=== PATIENT | male | born 1980 | race Caucasian/White ===

== ENCOUNTER → 2017-06-13 | Outpatient (CLI) | payer OTHER ==
[2017-06-13 18:05] LABS: BASO % 0.2 %; BASO ABS # 0.01 K/uL (0-0.2); COMPLETE YES; EOS % 0.9 %; HEMATOCRIT 44.8 % (42-52); IG% 0.4 %; LYMPH ABS # 1.24 K/uL (1.2-3.4); MEAN CELL VOLUME 90.1 fL (80-100); MEAN CORPUSCULAR HEMOGLOBIN 32.2 pg (25-34); MEAN CORPUSCULAR HGB CONC 35.7 g/dl (32-36); MEAN PLATELET VOLUME 9.9 fL (7.4-10.4); MONO % 6.3 %; NEUT % 69.2 %; PLATELET COUNT 181 K/uL (130-400); RED BLOOD COUNT 4.97 M/uL (4.7-6.1)
[2017-06-13 18:28] LABS: ALT/SGPT 52 U/L (12-78); BLOOD UREA NITROGEN 15 mg/dl (7-18); BUN/CREATININE RATIO 11.6 (10-20); CALCIUM 8.9 mg/dl (8.5-10.1); CARBON DIOXIDE 24 mmol/L (21-32); CHLORIDE 110 mmol/L (98-107); GLUCOSE 128 mg/dl (70-99); POTASSIUM 3.6 mmol/L (3.5-5.1); SODIUM 142 mmol/L (136-145)
[2017-06-13 18:38] LABS: ALB/GLOB RATIO 1.3 (0.9-2); ALKALINE PHOSPHATASE 53 U/L (45-117); AST/SGOT 23 U/L (15-37)
[2017-06-13 19:01] LABS: ESTIMATED AVERAGE GLUCOSE 88 mg/dl; HA1C FLAG Normal (Normal)
[2017-06-17 13:54] LABS: MICROSOMAL AB <1 IU/ML (<9)
[2017-06-18 10:05] LABS: METHYLMALONIC ACID 85 NMOL/L (87-318)
== END | disposition home or self-care (01) ==
LOC: C.LABPVFM 16:04
PROVIDERS: ATTEND Chiropractor
DX: M79.1 Myalgia (principal)

== ENCOUNTER 2017-09-01 12:15 | Inpatient (IN) | payer OTHER ==
[~2017-09-01] VITALS: Ht 175.3 cm; Wt 86.8 kg
[2017-09-01 12:49] LABS: URINE APPEARANCE CLEAR (CLEAR); URINE BILIRUBIN NEG (NEG); URINE COLOR YELLOW; URINE NITRITE NEG (NEG); URINE SPECIFIC GRAVITY 1.018 (1.000-1.030); UROBILINOGEN NEG (NEG)
[2017-09-01 12:53] LABS: MANUAL MICROSCOPIC REQUIRED? NO; REVIEW REQ? NO
[2017-09-01 13:11] LABS: BENZODIAZEPINE, URINE NEG (NEG); COCAINE,URINE NEG (NEG); PHENCYCLIDINE, URINE NEG (NEG)
[2017-09-01 13:17] LABS: BASO % 0.5 %; BASO ABS # 0.03 K/uL (0-0.2); COMPLETE YES; EOS % 2.6 %; IG% 0.9 %; LYMPH % 17.6 %; LYMPH ABS # 1.17 K/uL (1.2-3.4); MEAN CELL VOLUME 89.9 fL (80-100); MEAN CORPUSCULAR HEMOGLOBIN 32.5 pg (25-34); MEAN CORPUSCULAR HGB CONC 36.2 g/dl (32-36); MEAN PLATELET VOLUME 9.6 fL (7.4-10.4); MONO % 6.6 %; NEUT % 71.8 %; PLATELET COUNT 183 K/uL (130-400); RED BLOOD COUNT 5.23 M/uL (4.7-6.1); WHITE BLOOD COUNT 6.65 K/uL (4.8-10.8)
[2017-09-01 13:37] LABS: BUN/CREATININE RATIO 9.7 (10-20); CALCIUM 8.6 mg/dl (8.5-10.1); CREATININE 1.1 mg/dl (0.60-1.40)
[2017-09-01 13:48] LABS: THYROID STIMULATING HORMONE 1.02 uIu/ml (0.300-4.500)
[2017-09-01] MEDS ORDERED: MAGNESIUM HYDROXIDE SUSP 30 ML UDC PO PRN (16:15)
[2017-09-01] MEDS ORDERED: SODIUM CHLORIDE 0.65% NA SOLN 45 ML (OCEAN) PRN (16:15)
[2017-09-01] MEDS ORDERED: hydrOXYzine HCL 25 MG TAB PO PRN ×2 (16:15)
[2017-09-01] MEDS ORDERED: BISMUTH SUBSALICYLATE PER ML OMNICELL CHARGE PO PRN (16:15)
[2017-09-01 16:38] VITALS: O2SAT 96
[2017-09-01 17:17] VITALS: BP 124/85; PULSE 88; TEMP 36.8; Ht 175.3 cm; Wt 86.8 kg
--- NOTE | 2017-09-01 19:10 | EMERGENCY ROOM VISIT NOTE ---
History Report prepared by Rosey: Liliana Fan Under the Supervision of: Dr. Jayesh Navarrete D.O. First contact with patient: 12:29 Chief Complaint: MENTAL HEALTH EVALUATION Stated Complaint: DEPRESSION History of Present Illness The patient is a 36 year old male who presents to the Emergency Room with complaints of worsening depression over the past 3 weeks. The patient has a history of depression. He sees a therapist weekly who thinks that he might have bipolar disorder. The patient agreed to go on medications last week, but is unable to see a psychiatrist for 2 months. He presents to the ED to see if he can speed up the process of starting medications. He has been on Lexapro in the past. He denies any thoughts of harming himself or others. He has had passive thoughts of dying. He has never attempted suicide in the past. He denies any history of cutting himself. He admits to marijuana use and alcohol use. Pt denies headache, change in vision, fevers, chest pain, shortness of breath, nausea, vomiting, diarrhea, pain with urination. Source of History: patient Onset: 3 weeks Position: other (mental health) Quality: other (depression) Timing: worsening Associated Symptoms: No fevers, No headache, No chest pain, No SOB, No nausea, No vomiting, No diarrhea, No urinary symptoms Note: Pt admits to passive thoughts of dying. Pt denies thoughts of harming self or others, change in vision. Review of Systems See HPI for pertinent positives & negatives. A total of 10 systems reviewed and were otherwise negative. Past Medical & Surgical Medical Problems: (1) Depression Family History No pertinent family history stated. Social History Smoking Status: Never Smoker Marital Status: Current/Historical Medications No Active Prescriptions or Reported Meds Allergies Coded Allergies: Cefaclor (Verified Allergy, Unknown, 09/01/17) Oxycodone (Verified Adverse Reaction, Mild, PERCOCET-VOMITING, 09/01/17) Uncoded Allergies: CELCOR (Allergy, Unknown, 09/23/04) Physical Exam Vital Signs Date Time Temp Pulse Resp B/P (MAP) Pulse Ox O2 Delivery O2 Flow Rate FiO2 09/01/17 16:38 88 14 124/85 96 09/01/17 16:07 88 14 124/85 96 Room Air 09/01/17 12:17 36.8 88 15 133/84 98 Room Air Physical Exam GENERAL: sitting up in bed, disheveled, no acute distress, nontoxic. EYE EXAM: normal conjunctiva OROPHARYNX: no exudate, no erythema, lips, buccal mucosa, and tongue normal and mucous membranes are moist NECK: supple, no nuchal rigidity, no adenopathy, non-tender LUNGS: Clear to auscultation. Normal chest wall mechanics HEART: no murmurs, S1 normal and S2 normal ABDOMEN: abdomen soft, non-tender, normo-active bowel sounds, no masses, no rebound or guarding. BACK: Back is symmetrical on inspection and there is no deformity, no midline tenderness, no CVA tenderness. SKIN: no rashes and no bruising UPPER EXTREMITIES: upper extremities are grossly normal. LOWER EXTREMITIES: No pitting edema. NEURO EXAM: Normal sensorium, cranial nerves II-XII grossly intact, normal speech, no gross weakness of arms, no gross weakness of legs. PSYCH: Denies suicidal or homicidal ideation, denies auditory or visual hallucinations, admits to depression, is eating and drinking. Medical Decision & Procedures Laboratory Results 09/01/17 13:03 Red Blood Count 5.23, Mean Corpuscular Volume 89.9, Mean Corpuscular Hemoglobin 32.5, Mean Corpuscular Hemoglobin Concent 36.2, Mean Platelet Volume 9.6, Neutrophils (%) (Auto) 71.8, Lymphocytes (%) (Auto) 17.6, Monocytes (%) (Auto) 6.6, Eosinophils (%) (Auto) 2.6, Basophils (%) (Auto) 0.5, Neutrophils # (Auto) 4.78, Lymphocytes # (Auto) 1.17, Monocytes # (Auto) 0.44, Eosinophils # (Auto) 0.17, Basophils # (Auto) 0.03 09/01/17 13:03 Test 09/01/17 12:30 09/01/17 13:03 Urine Color YELLOW Urine Appearance CLEAR (CLEAR) Urine pH 7.0 (4.5-7.5) Urine Specific [place] 1.018 (1.000-1.030) Urine Protein NEG (NEG) Urine Glucose (UA) NEG (NEG) Urine Ketones NEG (NEG) Urine Occult Blood NEG (NEG) Urine Nitrite NEG (NEG) Urine Bilirubin NEG (NEG) Urine Urobilinogen NEG (NEG) Urine Leukocyte Esterase NEG (NEG) Urine Opiates Screen NEG (NEG) Urine Methadone, Qualitative NEG (NEG) Urine Barbiturates NEG (NEG) Urine Phencyclidine (PCP) Level NEG (NEG) Ur Amphetamine/Methamphetamine NEG (NEG) MDMA (Ecstasy) Screen NEG (NEG) Urine Benzodiazepines Screen NEG (NEG) Urine Cocaine Metabolite NEG (NEG) Urine Marijuana (THC) POS (NEG) White Blood Count 6.65 K/uL (4.8-10.8) Red Blood Count 5.23 M/uL (4.7-6.1) Hemoglobin 17.0 g/dL (14.0-18.0) Hematocrit 47.0 % (42-52) Mean Corpuscular Volume 89.9 fL (80-100) Mean Corpuscular Hemoglobin 32.5 pg (25-34) Mean Corpuscular Hemoglobin Concent 36.2 g/dl (32-36) Platelet Count 183 K/uL (130-400) Mean Platelet Volume 9.6 fL (7.4-10.4) Neutrophils (%) (Auto) 71.8 % Lymphocytes (%) (Auto) 17.6 % Monocytes (%) (Auto) 6.6 % Eosinophils (%) (Auto) 2.6 % Basophils (%) (Auto) 0.5 % Neutrophils # (Auto) 4.78 K/uL (1.4-6.5) Lymphocytes # (Auto) 1.17 K/uL (1.2-3.4) Monocytes # (Auto) 0.44 K/uL (0.11-0.59) Eosinophils # (Auto) 0.17 K/uL (0-0.5) Basophils # (Auto) 0.03 K/uL (0-0.2) RDW Standard Deviation 41.1 fL (36.4-46.3) RDW Coefficient of Variation 12.7 % (11.5-14.5) Immature Granulocyte % (Auto) 0.9 % Immature Granulocyte # (Auto) 0.06 K/uL (0.00-0.02) Anion Gap 10.0 mmol/L (3-11) Est Creatinine Clear Calc Drug Dose 101.3 ml/min Estimated GFR () 99.6 Estimated GFR (Non- 85.9 BUN/Creatinine Ratio 9.7 (10-20) Calcium Level 8.6 mg/dl (8.5-10.1) Total Bilirubin 0.6 mg/dl (0.2-1) Direct Bilirubin 0.1 mg/dl (0-0.2) Aspartate Amino Transf (AST/SGOT) 28 U/L (15-37) Alanine Aminotransferase (ALT/SGPT) 58 U/L (12-78) Alkaline Phosphatase 55 U/L (45-117) Total Protein 7.3 gm/dl (6.4-8.2) Albumin 4.2 gm/dl (3.4-5.0) Thyroid Stimulating Hormone (TSH) 1.020 uIu/ml (0.300-4.500) Ethyl Alcohol mg/dL < 3.0 mg/dl (0-3) Laboratory results per my review. ED Course ED COURSE: Vital signs were reviewed and showed normal vitals. The patients medical record was reviewed The above diagnostic studies were performed and reviewed. ED treatments and interventions as stated above. 1245: The patient was evaluated in room A6. A complete history and physical examination was performed. 1630: Upon reevaluation, the patient is resting comfortably.I discussed my findings with the patient and he understands and agrees with the treatment plan. Based on the patients age, coexisting illnesses, exam and lab findings the decision to treat as an inpatient was made. The patient remained stable while under my care. The patient has been accepted to [address] [place] [address]. Medical Decision Differential diagnosis: Etiologies such as mood disorder, infection, hypoglycemia, electrolyte abnormalities, cardiac sources, intracerebral event, toxicologic, neurologic, as well as others were entertained. Patient is a 36-year-old male who notes it is been becoming more depressed over the past several weeks. He is losing desire to live. He has no clear plan to harm himself. He has been having trouble with his day-to-day activities. No sniffing medical problems. Labs were obtained and he was deemed medically stable. He was evaluated by psychiatric care managers and admitted to [facility] on a 201. Medication Reconcilliation Current Medication List: was personally reviewed by me Blood Pressure Screening Patient's blood pressure: Normal blood pressure Blood pressure disposition: Did not require urgent referral Impression Primary Impression: Mood disorder Scribe Attestation The scribe's documentation has been prepared under my direction and personally reviewed by me in its entirety. I confirm that the note above accurately reflects all work, treatment, procedures, and medical decision making performed by me. Departure Information Dispostion Mental Health Acute Care Prescriptions No Active Prescriptions or Reported Meds Referrals No Doctor, Assigned (PCP) Patient Instructions [facility]
[2017-09-02] MEDS: ALUMINUM/MAGNESIUM SUSP 30 ML UDC PO PRN ×2 (04:11→22:29)
[2017-09-02 07:02] VITALS: BP_SYST 106; BP_SYST 109; BP_DIAS 70; BP_DIAS 75; PULSE 58; PULSE 86; TEMP 36.6
--- NOTE | 2017-09-02 12:01 | Psychiatric History & Physical ---
History Date of Service Sep 02, 2017. Identifying Data Jamaal Mejia is a 36-year-old male from [facility], who was brought to the ED by his and his friend, with reports of depression in the setting of untreated bipolar disorder. The patient was admitted voluntarily. Information is gathered from the patient and considered to be reliable. Chief Complaint "My therapist is pretty confident that I have bipolar."". History of Present Illness The patient is a 36-year-old gentleman who currently sees Alpa Samuel for therapy weekly, who was brought to the emergency room by his and his best friend because of depression. He reports that his therapist has thought he is bipolar for some time now but he admits to being resistant to the idea of taking medications. He first recognized his severe depression several years ago although says he can probably trace some depression back prior to that. At that time he had "crippling anxiety" and depression with suicidal thoughts and sought treatment with his primary care physician who prescribed Lexapro. He had affect is blunting on Lexapro but stayed on it for 9 months and then tapered , struggling with some discontinuation symptoms. His next clearer episode was in the summer of 2014 in which she describes being manic. He says that he had no worries, was hypersexual, had little sleep. He insisted on sleeping outside for several months, was not bathing or brushing his teeth. He described his mood is "happy", saying he didn't care about money. He describes feeling like he was "walking around in a daze" he feels that they were actually times during that period that he couldn't remember. That episode lasted for several months and after that describes having had "small shifts" in his mood until December of this year when he once again experienced maxwell. He describes feeling "very ambitious", hypersexual, objective finding women, feeling very creative and ambitious. He said that he was "never tired" although was sleeping very little. After the manic episode he describes having 6. Of several months where he actually felt "normal" until spring of this year when he had some more minor manic symptoms. 2 months ago he began feeling negative and sad. One week ago his symptoms became severe enough that he voiced his that he was "done with it", not wanting to go through this again. He called his best friend in the middle of the night was able to convince him to take medications and the next day they attempted to get an appointment with Dr. Herring but he was unable to see them until October. At that point his family convinced him to come to the emergency room fearing that his condition was too unstable to wait until October. Today the patient admits that he has been increasingly depressed and anxious. He has been smoking marijuana to medicate his anxiety and feels that that has been helpful. His sleep has been disturbed getting only about 5 hours of sleep per night, waking at 4 AM with a "terrible feeling". He goes on to say however that he gets up in the morning with a "restless excited feeling that is like morning". His appetite is been down saying "I don't get hungry" but then admits to binging on out unhealthy foods in the evening. He reports poor focus and concentration that generally only accompany his depressions as he is hyper focused and productive during manic episodes. 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 He has been having daily crying episodes. He admits to having at least one panic episode while in the garage at home during which she experienced hyperventilation, crying and required the physical assistance of his to calm down he denies ever having any auditory or visual hallucinations. 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 He denies any eating disordered symptoms. He describes being socially anxious since the age of 14, vomiting prior to having to go out where there will be people and if required to eat out at a restaurant would get up from the table senior living through the meal to go vomit. He currently denies suicidal or homicidal ideation. Past Psychiatric History Current OP Treatment: therapist Prior OP Treatment: psychiatrist (one previous session with Dr. Chaparro to discuss) Prior Psych Hospitalizations: none Access to a Gun: No Suicide Attempts: No Past Medication Trials Lexapro Past Medical/Surgical History History of Concussion/Seizure: No (1) none Allergies Allergies: Coded Allergies: Cefaclor (Verified Allergy, Unknown, 09/01/17) Oxycodone (Verified Adverse Reaction, Mild, PERCOCET-VOMITING, 09/01/17) Uncoded Allergies: CELCOR (Allergy, Unknown, 09/23/04) Home Medications No Active Prescriptions or Reported Meds Family History FH: Alzheimers disease FH: Parkinson's disease FH: epilepsy FH: multiple sclerosis History of Suicide: No History of Substance Abuse: No Psychiatric History: Yes (older sister with depression) Alcohol Use Alcohol Use In Past 12 Months: Yes (Social. 1/2 beer last night. Alcohol gives Pt ALDRICH) AUDIT Total Score: 1 We'll drink at most 3-4 beers per week Smoking Use Smoking Status: Never Smoker Substance History Admits to smoking marijuana on a daily basis to medicate anxiety for the last several months. Denies the use of other illicit substances. Personal History Lives in: meal time with his and 2 daughters ages 9 and 5 Childhood: Raised by both parents in [place]. 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 Relationship History: ( Danika) Children: 2 daughters ages 9 and 5 Legal History: none Psychological Trauma History: Other (patient describes having been aggressively confronted by the police when he was 14 or 15 while living in [place] and had PTSD symptoms for a year) Review of Systems Constitutional: denies no symptoms reported, denies see HPI, denies chills, denies diaphoresis, denies fever, denies malaise, denies weakness, denies other Eyes: denies: no symptoms, as stated in HPI, eye pain, tearing, itching, redness, discharge, double vision, visual changes, blurred vision, photophobia, other ENT: denies: no symptoms reported, see HPI, ear pain, ear discharge, loss of hearing, tinnitus, nasal pain, nasal congestion, rhinorrhea, epistaxis, sore throat, stidor, throat swelling, mouth pain, mouth swelling, dental pain, gum swelling, other Cardiovascular: reports: other (elevated heart rate with anxiety) Respiratory: denies: no symptoms reported, see HPI, cough, orthopnea, short of breath, stridor, wheezing, sputum production, cyanosis, JUSTIN, PND, other Gastrointestinal: denies no symptoms reported, denies see HPI, denies abdominal pain, denies constipation, denies diarrhea, denies nausea, denies vomiting, denies other Genitourinary - Male: denies: no symptoms, see HPI, rash, amenorrhea, penile itching, penile discharge, testicular pain, testicular swelling, impotence, other Musculoskeletal: denies no symptoms reported, denies see HPI, denies back pain , denies gout, denies joint pain, denies joint swelling, denies muscle pain, denies muscle stiffness, denies neck pain, denies other Integumentary: denies no symptoms reported, denies see HPI, denies change in color, denies change in hair/nails, denies dryness, denies lesions, denies lumps , denies rash, denies other Neurologic: denies: no symptoms, see HPI, headache, numbness, paresthesias, pre -existing deficit, seizure, tingling, tremors, general weakness, tics, focal weakness, vertigo, lethargy, memory loss, dizziness, other Endocrine: denies: no symptoms, as stated in HPI, cold intolerance, heat intolerance, hair changes, goiter, polydipsia, polyuria, skin changes, other Hematologic / Lymphatic: denies: no symptoms, as stated in HPI, abnormal clotting, adenopathy, anemia, easy bleeding, easy bruising, gums bleeding, petechiae, other Examination Physical Examination Exam performed by Dr. Navarrete in the emergency Department has been reviewed and accepted as medical clearance for our unit Vital Signs Vital Signs Past 12 Hours Date Time Temp Pulse Resp B/P (MAP) Pulse Ox O2 Delivery O2 Flow Rate FiO2 09/02/17 07:02 36.6 58 16 106/70 86 109/75 Laboratory Results Last 24 Hours Test 09/01/17 12:30 09/01/17 13:03 Urine Color YELLOW Urine Appearance CLEAR Urine pH 7.0 Urine Specific [place] 1.018 Urine Protein NEG Urine Glucose (UA) NEG Urine Ketones NEG Urine Occult Blood NEG Urine Nitrite NEG Urine Bilirubin NEG Urine Urobilinogen NEG Urine Leukocyte Esterase NEG Urine Opiates Screen NEG Urine Methadone, Qualitative NEG Urine Barbiturates NEG Urine Phencyclidine (PCP) Level NEG Ur Amphetamine/Methamphetamine NEG MDMA (Ecstasy) Screen NEG Urine Benzodiazepines Screen NEG Urine Cocaine Metabolite NEG Urine Marijuana (THC) POS White Blood Count 6.65 K/uL Red Blood Count 5.23 M/uL Hemoglobin 17.0 g/dL Hematocrit 47.0 % Mean Corpuscular Volume 89.9 fL Mean Corpuscular Hemoglobin 32.5 pg Mean Corpuscular Hemoglobin Concent 36.2 g/dl Platelet Count 183 K/uL Mean Platelet Volume 9.6 fL Neutrophils (%) (Auto) 71.8 % Lymphocytes (%) (Auto) 17.6 % Monocytes (%) (Auto) 6.6 % Eosinophils (%) (Auto) 2.6 % Basophils (%) (Auto) 0.5 % Neutrophils # (Auto) 4.78 K/uL Lymphocytes # (Auto) 1.17 K/uL Monocytes # (Auto) 0.44 K/uL Eosinophils # (Auto) 0.17 K/uL Basophils # (Auto) 0.03 K/uL RDW Standard Deviation 41.1 fL RDW Coefficient of Variation 12.7 % Immature Granulocyte % (Auto) 0.9 % Immature Granulocyte # (Auto) 0.06 K/uL Sodium Level 140 mmol/L Potassium Level 4.0 mmol/L Chloride Level 105 mmol/L Carbon Dioxide Level 25 mmol/L Anion Gap 10.0 mmol/L Blood Urea Nitrogen 11 mg/dl Creatinine 1.10 mg/dl Est Creatinine Clear Calc Drug Dose 101.3 ml/min Estimated GFR () 99.6 Estimated GFR (Non- 85.9 BUN/Creatinine Ratio 9.7 Random Glucose 93 mg/dl Calcium Level 8.6 mg/dl Total Bilirubin 0.6 mg/dl Direct Bilirubin 0.1 mg/dl Aspartate Amino Transf (AST/SGOT) 28 U/L Alanine Aminotransferase (ALT/SGPT) 58 U/L Alkaline Phosphatase 55 U/L Total Protein 7.3 gm/dl Albumin 4.2 gm/dl Thyroid Stimulating Hormone (TSH) 1.020 uIu/ml Ethyl Alcohol mg/dL < 3.0 mg/dl Mental Examination During interview pt is: alert and oriented, cooperative Appearance: appropriately dressed, appropriately groomed Eye contact is: good Motor behavior is: steady gait & station, no abnormal motor movements Speech: other (speech is rapid but not pressured) Affect: depressed, anxious Mood is: depressed, anxious Thought process: circumstantial, tangential Thought content: reality based without delusions Suicidal thought are: denied Homicidal thoughts are: denied Hallucinations: denies auditory, denies visual Cognition: memory grossly intact, language grossly intact, other (easily distracted) Intelligence estimated to be: average Insight: fair Judgement: fair Impression / Recommendations Impression 36-year-old gentleman who presents to the hospital with depression and anxiety. He can very clearly describe periods of maxwell that meet criteria for type I bipolar disorder. We have reviewed possible mood stabilizers including Lamictal , Depakote and lithium. He is agreeable to a trial of lithium. Risks, benefits and side effects were reviewed and accepted. We will get a baseline EKG for today and load him with lithium this evening with Lithobid 900 mg at 4 and 8 with 600 mg at 6, and a lithium level in the a.m. We will schedule a family meeting with his today and work toward establishing prompt aftercare. He did not necessarily want to be admitted and denies that he is suicidal at this time and so would like to accomplish these tasks as quickly as possible in order to be discharged to home. I think this is a reasonable plan. Inventory Assets Strengths: Level of his family, intellect Needs: To abstain from cannabis Risk Factors Assessment Male: Yes : Yes /single/: No Higher / Fall in social status: No Access to guns: No Health problems: No Mental Health Diagnoses: Yes Substance use disorders: Yes (cannabis) Previous attempt: No Previous psychiatric stay: No Hopelessness: No Smoker: No Protective Factors Assessment : Yes Responsible for young children: Yes Employed: Yes Stable relationships: Yes Supportive family: Yes Recommendations (1) bipolar 1 disorder, depressed with mixed features 10/2 -Patient agreeable to a trial of lithium. We will load with 900-600-900 milligrams today at 4, 6 and 8 PM with a level in the morning - EKG for baseline - Family meeting with today - Will need psychiatric aftercare - Every 15 minute checks for safety -Encourage participation in group and individual counseling - Assist the patient to explore healthy coping strategies (2) Cannabis use disorder, mild, abuse 10/2 - Patient has been using cannabis for anxiety. I advised him to abstain and the name of having a pure trial of lithium. Has been reviewed with Dr. Sailaja Young CPT Code Initial Hospital Care: [id number]
[2017-09-02] MEDS ORDERED: LITHIUM CARBONATE SR 300 MG TAB (LITHOBID) PO ONE ×2 (16:00→18:00)
[2017-09-02] MEDS: LITHIUM CARBONATE SR 300 MG TAB (LITHOBID) PO SCH ×2 (16:30→20:04)
[2017-09-03 07:11] VITALS: BP_SYST 114; BP_SYST 125; BP_DIAS 77; BP_DIAS 82; PULSE 62; PULSE 76; TEMP 36.6
[2017-09-03] MEDS ORDERED: LITH1TAB10 PO (10:01)
--- NOTE | 2017-09-03 10:09 | Discharge Instructions ---
Discharge Information Report Includes Report will include the: Discharge Instructions & Summary Admission Admission Date / Time: Sep 01, 2017 at 16:47 Reason for Admission: Depressive Disorder Nos Discharge Discharge Diagnosis / Problem: Bipolar disorder, depressed Condition at Discharge: Good Discharge Goals Goal(s): Decrease discomfort, Improve disease control, Prevent Disease Progression Activity Recommendations Activity Limitations: resume your previous activity . Instructions / Follow-Up Instructions / Follow-Up . SPECIAL CARE INSTRUCTIONS: 1. Follow through with your scheduled aftercare appointments. If unable to keep an appointment, please call to reschedule. 2. Take your medication only as prescribed. Medication should not be changed or stopped without the approval of your doctor. In the event of worsening symptoms or concerns about side effects, contact your doctor immediately. 3. Utilize new healthy coping skills, anger management skills, and stress management skills learned during your hospitalization. Journal feelings and process them with a support person. Identify stressors or situations that may result in relapse, deterioration or inappropriate behaviors and develop a plan to deal with those issues. 4. If your coping skills are ineffective and you are in crisis, contact your outpatient providers for direction. If unable to reach your providers, please call the CAN HELP LINE AT or go to the closest Emergency Room. 5. Avoid alcohol and un-prescribed drugs. 6. You have been provided with the Mental Health Advance Directives Pamphlet for your review. AFTERCARE APPOINTMENTS: * Please call your insurance company prior to your scheduled appointment to confirm your aftercare providers are covered. Take your insurance information to your appointments. . Discharge / Aftercare Planning Primary Care Physician: Name: Dr Jordan to switch to provider in [facility] Therapist: Name Of Therapist: Alpa Samuel Date of Appointment: Sep 06, 2017 Optical Lathe Operator: Name: None . Follow-Up Care Plan for Follow-Up Care: The patient will have prompt follow up with the undersigned. Current Hospital Diet Patient's current hospital diet: Regular Diet Discharge Diet Recommended Diet: Regular Diet Procedures Procedures Performed: No Pending Studies Pending Studies at Discharge: No Medical Emergencies . Who to Call and When: Medical Emergencies: For questions or emergencies related to your hospital stay, please contact the Inpatient Behavioral Health Unit at [phone]. A edge bonder is on-call 24/06 for the Behavioral Health Unit for emergencies At any time you feel your situation is an emergency, you may also call 911 immediately. . Non-Emergent Contact Non-Emergency issues call your: Psychiatrist, Therapist Advance Directives Existing Advance Directive: No Do You Have an Existing Mental: No Existing Living Will: No Existing Power of Ore Dressing Engineer: No Advance Directives Info Given: To Pt/S.O. Advance Directives Reason: Declines as Mental Health Visit. Discharge Summary Admission HPI Per the Admitting provider: The patient is a 36-year-old gentleman who currently sees Alpa Samuel for therapy weekly, who was brought to the emergency room by his and his best friend because of depression. He reports that his therapist has thought he is bipolar for some time now but he admits to being resistant to the idea of taking medications. He first recognized his severe depression several years ago although says he can probably trace some depression back prior to that. At that time he had "crippling anxiety" and depression with suicidal thoughts and sought treatment with his primary care physician who prescribed Lexapro. He had affect is blunting on Lexapro but stayed on it for 9 months and then tapered , struggling with some discontinuation symptoms. His next clearer episode was in the summer of 2014 in which she describes being manic. He says that he had no worries, was hypersexual, had little sleep. He insisted on sleeping outside for several months, was not bathing or brushing his teeth. He described his mood is "happy", saying he didn't care about money. He describes feeling like he was "walking around in a daze" he feels that they were actually times during that period that he couldn't remember. That episode lasted for several months and after that describes having had "small shifts" in his mood until December of this year when he once again experienced maxwell. He describes feeling "very ambitious", hypersexual, objective finding women, feeling very creative and ambitious. He said that he was "never tired" although was sleeping very little. After the manic episode he describes having 6. Of several months where he actually felt "normal" until spring of this year when he had some more minor manic symptoms. 2 months ago he began feeling negative and sad. One week ago his symptoms became severe enough that he voiced his that he was "done with it", not wanting to go through this again. He called his best friend in the middle of the night was able to convince him to take medications and the next day they attempted to get an appointment with Dr. Herring but he was unable to see them until October. At that point his family convinced him to come to the emergency room fearing that his condition was too unstable to wait until October. Today the patient admits that he has been increasingly depressed and anxious. He has been smoking marijuana to medicate his anxiety and feels that that has been helpful. His sleep has been disturbed getting only about 5 hours of sleep per night, waking at 4 AM with a "terrible feeling". He goes on to say however that he gets up in the morning with a "restless excited feeling that is like morning". His appetite is been down saying "I don't get hungry" but then admits to binging on out unhealthy foods in the evening. He reports poor focus and concentration that generally only accompany his depressions as he is hyper focused and productive during manic episodes. 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 He has been having daily crying episodes. He admits to having at least one panic episode while in the garage at home during which she experienced hyperventilation, crying and required the physical assistance of his to calm down he denies ever having any auditory or visual hallucinations. 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 He denies any eating disordered symptoms. He describes being socially anxious since the age of 14, vomiting prior to having to go out where there will be people and if required to eat out at a restaurant would get up from the table [facility] through the meal to go vomit. He currently denies suicidal or homicidal ideation. Hospital Course (1) bipolar 1 disorder, depressed with mixed features 09/02 -Patient agreeable to a trial of lithium. We will load with 900-600-900 milligrams today at 4, 6 and 8 PM with a level in the morning - EKG for baseline - Family meeting with today - Will need psychiatric aftercare - Every 15 minute checks for safety -Encourage participation in group and individual counseling - Assist the patient to explore healthy coping strategies (2) Cannabis use disorder, mild, abuse 09/02 - Patient has been using cannabis for anxiety. I advised him to abstain and the name of having a pure trial of lithium. Risk Factors Assessment Male: Yes : Yes /single/: No Higher / Fall in social status: No Health problems: No Mental Health Diagnoses: Yes Substance use disorders: Yes (cannabis) Previous attempt: No Previous psychiatric stay: No Hopelessness: No Smoker: No Protective Factors Assessment : Yes Responsible for young children: Yes Employed: Yes Stable relationships: Yes Supportive family: Yes Day of Discharge Assessment COURSE OF HOSPITALIZATION: The patient was admitted voluntarily with symptoms of severe depression. Upon exam, his symptoms meeti criteria for Bipolar I disorder, and he was loaded with lithobid with a resulting level of 0.9 this AM. He has adamantly denied SI during his short stay and had not anticipated that he would be hospitalized, hoping only to expedite the process of getting on meds, by coming to the ED. He will be started on a maintenance dose of lithobid 600 mg. HS with another level in 5 days. I will see the patient for a bridge appt until he is able to get in to see Dr. Flores who he had tried to get an appt with prior to admission. If for any reason Dr. Bhatti is unable to see the patient, I will continue to see him my OP practice. Family meeting was held with his , who is supportive of patient's treatment. She feels that he is safe to return home at any time. DAY OF DISCHARGE ASSESSMENT: The patient is requesting discharge. He continues to deny SI. He had some mild nausea last night associated with the lithium loading but improved today. He is agreeable to continuing lithium and with OP treatment. Today he is casually and appropriately dressed and groomed. Gait and station are WNL. Eye contact is good. Speech is not pressured but somewhat rapid, as on admission. Eye contact is good. Affect is blunted. Thoughts are organized, goal directed, mildly circumstantial but without evidence of thought disorder. Recent/remote memory are intact per conversation. Intelligence is estimated to be average. Insight and judgement are good. Laboratory Test 09/01/17 12:30 09/01/17 13:03 09/03/17 07:29 Urine Color YELLOW Urine Appearance CLEAR Urine pH 7.0 Urine Specific [place] 1.018 Urine Protein NEG Urine Glucose (UA) NEG Urine Ketones NEG Urine Occult Blood NEG Urine Nitrite NEG Urine Bilirubin NEG Urine Urobilinogen NEG Urine Leukocyte Esterase NEG Urine Opiates Screen NEG Urine Methadone, Qualitative NEG Urine Barbiturates NEG Urine Phencyclidine (PCP) Level NEG Ur Amphetamine/Methamphetamine NEG MDMA (Ecstasy) Screen NEG Urine Benzodiazepines Screen NEG Urine Cocaine Metabolite NEG Urine Marijuana (THC) POS Urine Marijuana (THC Carboxy Acid) Pending White Blood Count 6.65 Red Blood Count 5.23 Hemoglobin 17.0 Hematocrit 47.0 Mean Corpuscular Volume 89.9 Mean Corpuscular Hemoglobin 32.5 Mean Corpuscular Hemoglobin Concent 36.2 Platelet Count 183 Mean Platelet Volume 9.6 Neutrophils (%) (Auto) 71.8 Lymphocytes (%) (Auto) 17.6 Monocytes (%) (Auto) 6.6 Eosinophils (%) (Auto) 2.6 Basophils (%) (Auto) 0.5 Neutrophils # (Auto) 4.78 Lymphocytes # (Auto) 1.17 Monocytes # (Auto) 0.44 Eosinophils # (Auto) 0.17 Basophils # (Auto) 0.03 RDW Standard Deviation 41.1 RDW Coefficient of Variation 12.7 Immature Granulocyte % (Auto) 0.9 Immature Granulocyte # (Auto) 0.06 Sodium Level 140 Potassium Level 4.0 Chloride Level 105 Carbon Dioxide Level 25 Anion Gap 10.0 Blood Urea Nitrogen 11 Creatinine 1.10 Est Creatinine Clear Calc Drug Dose 101.3 Estimated GFR () 99.6 Estimated GFR (Non- 85.9 BUN/Creatinine Ratio 9.7 Random Glucose 93 Calcium Level 8.6 Total Bilirubin 0.6 Direct Bilirubin 0.1 Aspartate Amino Transferase (AST) 28 Alanine Aminotransferase (ALT) 58 Alkaline Phosphatase 55 Total Protein 7.3 Albumin 4.2 Thyroid Stimulating Hormone (TSH) 1.020 Ethyl Alcohol mg/dL < 3.0 [place] Level 0.9 Total Time Total Time Spent (min): Greater than 30 minutes Total Time Included: examination of the patient, discharge planning, medication reconciliation, communication with other providers Tobacco Cessation at Discharge Smoking Status: Never Smoker FDA approved Prescription: non-smoker
== END 2017-09-03 12:50 | disposition home or self-care (01) | DRG 885 ==
LOC: C.EDB 12:17 → ENRESERV 16:40 → C.MHU 16:47
PROVIDERS: ADMIT Psychiatry & Neurology Child & Adolescent Psychiatry; ATTEND Psychiatry & Neurology Child & Adolescent Psychiatry
DX: F31.60 Bipolar disorder, current episode mixed, unspecified (principal); F12.10 Cannabis abuse, uncomplicated; Z81.8 Family history of other mental and behavioral disorders

== ENCOUNTER → 2017-09-08 | Outpatient (CLI) | payer OTHER ==
[~2017-09-08] MED LIST: LITH1TAB10 PO
== END | disposition home or self-care (01) ==
LOC: C.LAB 11:25
PROVIDERS: ATTEND Registered Nurse Psychiatric/Mental Health
DX: Z51.81 Encounter for therapeutic drug level monitoring (principal)

== ENCOUNTER → 2017-09-21 | Outpatient (CLI) | payer OTHER | END | disposition home or self-care (01) | LOC: C.LABPVFM 10:54 | PROVIDERS: ATTEND Registered Nurse Psychiatric/Mental Health | DX: Z51.81 Encounter for therapeutic drug level monitoring (principal); Z79.899 Other long term (current) drug therapy ==

== ENCOUNTER → 2017-09-30 | Outpatient (CLI) | payer OTHER | END | disposition home or self-care (01) | LOC: C.LABPVFM 10:22 | PROVIDERS: ATTEND Registered Nurse Psychiatric/Mental Health | DX: F31.30 Bipolar disorder, current episode depressed, mild or moderate severity, unspecified (principal) ==

== ENCOUNTER → 2017-11-23 | Outpatient (CLI) | payer OTHER | END | disposition home or self-care (01) | LOC: C.LABPVFM 10:25 | PROVIDERS: ATTEND Registered Nurse Psychiatric/Mental Health | DX: Z51.81 Encounter for therapeutic drug level monitoring (principal); Z79.899 Other long term (current) drug therapy ==

== ENCOUNTER → 2018-03-12 | Outpatient (CLI) | payer OTHER | END | disposition home or self-care (01) | LOC: C.LABPVFM 10:59 | PROVIDERS: ATTEND Registered Nurse Psychiatric/Mental Health | DX: Z51.81 Encounter for therapeutic drug level monitoring (principal); Z79.899 Other long term (current) drug therapy ==

== ENCOUNTER → 2018-06-27 | Outpatient (CLI) | payer OTHER | END | disposition home or self-care (01) | LOC: C.LABPVFM 11:16 | PROVIDERS: ATTEND Registered Nurse Psychiatric/Mental Health | DX: Z51.81 Encounter for therapeutic drug level monitoring (principal) ==